=== PATIENT | female | born 1985 | race Caucasian/White ===

== ENCOUNTER 2016-07-25 17:57 | Emergency (ER) | payer OTHER ==
[~2016-07-25 17:57] MED LIST: AMIT25TA10 PO; BIRTH CONTROL PILL PO; CLAR10CA3 PO; CLON-412 PO; CLON0.5T PO; CLON1TAB PO; EMOQTAB PO; JOLETAB PO; LIDO1DIS2 TD; LYRI75CA OR; MULTTAB24 PO; OXYC1TAB15 PO; PERCOCET PO; PRENTAB7 PO; TRAM50TA2 OR; TRAM50TA2 PO; VENL150T PO; VENL75TA3 PO; VITA-130 PO; birth control pill PO
[2016-07-25] MEDS ORDERED: ONDANSETRON 4 MG ORAL DISINTEGRATING TAB (S0181) As Ordered ONE (19:57)
--- NOTE | 2016-07-25 20:08 | EDDOCDS ---
Physician Documentation [facility] Name: Elaine Mandujano Age: 30 yrs Sex: Female : 1985 Arrival Date: 07/25/2016 Time: 17:57 Bed Triage 2 Private MD: NO PRIMARY PHYSICIAN, . Disposition: 07/25/16 20:00 Discharged to Home/Self Care. Impression: Adverse effect of other narcotics - Tramadol Withdrawal, Anxiety disorder, unspecified. - Condition is Stable. - Discharge Instructions: Opioid Withdrawal, Nausea, Adult, [id number], Generalized Anxiety Disorder. - Prescriptions for ZOFRAN ODT 4 mg - dissolve 1 tablet by ORAL route 4 times per day As needed do not chew, do not swallow whole; 10 tablet. Vistaril 50 mg Oral capsule - take 1 capsule by ORAL route 4 times per day; 20 capsule. - Referral List Call for Appointment, Medication Reconciliation, Local Pharmacy Hours form. - [facility] ; When: 1 - 2 days; Reason: Recheck today's complaints, Continuance of care. Follow up: Emergency Department; Reason: Worsening of conditions. - Problem is new. - Symptoms have improved. Historical: - Allergies: Bactrim (chest pain); pregabalin (Swelling); - Home Meds: 1. buspirone 7.5 mg Oral tab 1 tab 2 times per day 2. tramadol 50 mg Oral tab 1 tab every 4 hours (Last dose: 07/24/2016 17:00) - PMHx: Scoliosis; previous misuse of Rx drugs; Pain clinic patient; Heart Murmur; GERD; Depression; Anxiety; - PSHx: Carpal Tunnel Repair- Right; debridement rt hand; - Social history: Smoking status: Patient uses tobacco products, light tobacco smoker. Patient uses street drugs, marijuana, Patient/guardian denies using alcohol, No barriers to communication noted, The patient speaks fluent Arabic, Speaks appropriately for age. - Family history: Not pertinent. - : The pt / caregiver states he / she is not on anticoagulants. Home medication list is obtained from the patient. - Exposure Risk Screening:: None identified. 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 11 in. (180.34 cm); Pain 8/10; 20:01 BP 155 / 85; Pulse 105; Resp 18; Temp 98.3(O); Pulse Ox 100% on R/A; Pain 5/10; rn1 17:58 Body Mass Index 16.04 (52.16 kg, 180.34 cm) dem1 MDM: 19:56 Ondansetron ODT Oral Disintegrating Tablet 4 mg PO once ordered. ef1 Administered Medications: 19:59 Drug: Ondansetron ODT 4 mg [ondansetron 4 mg disintegrating tablet (1 tabs)] Route: PO; ttb Signatures: Nichole Robin,RN RN ck1 Esperanza Cronin PA-C PAHussain ef1 Vivien Knox RN RN ttb Isac Bui RN RN jmb The chart was reviewed and I authenticate all verbal orders and agree with the evaluation and treatment provided.Corrections: (The following items were deleted from the chart) 20:02 18:20 Home Meds: tramadol 50 mg Oral tab 1 tab every 4 hours (Last Dose: 07/25/2016 debbie 17:00); ttb MTDD
--- NOTE | 2016-07-25 20:09 | EDDOCDS ---
Nurse's Notes [facility] Name: Elaine Mandujano Age: 30 yrs Sex: Female : 1985 Arrival Date: 07/25/2016 Time: 17:57 Bed Triage 2 Private MD: NO PRIMARY PHYSICIAN, . Diagnosis: Adverse effect of other narcotics-Tramadol Withdrawal;Anxiety disorder, unspecified Presentation: 07/25 18:16 Presenting complaint: Patient states: "I'm withdrawing from Tramadol". Last dose was ttb yesterday. C/o headache, hot and cold, shaky, blurred vision. No PCP. Been on it for 2 years for chronic hand pain. Pt was seeing Dr. Reed but pt dropped him .... Presenting complaint:. Adult Sepsis Screening: The patient does not have new or worsening altered mentation. Patient's respiratory rate is less than 22. Systolic blood pressure is greater than 100. Patient has a qSOFA score of 0- Negative Sepsis Screen. Suicide/Homicide risk assessment- the patient denies having any suicidal and/or homicidal ideations and does not present with any other emotional, behavioral or mental health complaints. Status: Patient is not a relocation services specialist or dependent. Transition of care: patient was not received from another setting of care. 18:16 Acuity: SUSY Level 5 ttb 18:16 Method Of Arrival: Walkin/Carried/Asstd ttb Triage Assessment: 18:20 General: Appears in no apparent distress, slender, Behavior is anxious, appropriate for ttb age, cooperative, pleasant. Pain: Location: right hand Pain currently is 8 out of 10 on a pain scale. HIV screening NA for this visit Offered previously. Neurological: Level of Consciousness is awake, alert. Neurological: Reports "shakiness". Cardiovascular: Chest pain is denied. Respiratory: No deficits noted. Airway is patent. GI: Reports nausea. Derm: Skin is normal. Injury Description: No known injury. 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 buspirone 7.5 mg Oral tab 1 tab 2 times per day 2. tramadol 50 mg Oral tab 1 tab every 4 hours (Last dose: 07/24/2016 17:00) - PMHx: Scoliosis; previous misuse of Rx drugs; Pain clinic patient; Heart Murmur; GERD; Depression; Anxiety; - PSHx: Carpal Tunnel Repair- Right; debridement rt hand; - Social history: Smoking status: Patient uses tobacco products, light tobacco smoker. Patient uses street drugs, marijuana, Patient/guardian denies using alcohol, No barriers to communication noted, The patient speaks fluent Vietnamese, Speaks appropriately for age. - Family history: Not pertinent. - : The pt / caregiver states he / she is not on anticoagulants. Home medication list is obtained from the patient. - Exposure Risk Screening:: None identified. Screenin:01 Screening information is obtained from the patient. Fall risk: No risks identified. ttb Assistance ADL's: requires no assistance with activities of daily living. Abuse/DV Screen: The patient / caregiver reports he/she is: not in a situation that causes fear, pain or injury. Nutritional screening: No deficits noted. Advance Directives: Currently, there is no health care proxy. home support is adequate. Assessment: 19:59 General: Appears in no apparent distress, comfortable, see triage assessment. Pt in no ttb distress. Meds given per orders. Ready for DC. . Respiratory: No deficits noted. Airway is patent. GI: Reports nausea. 20:07 General: Appears in no apparent distress, comfortable, Behavior is appropriate for age, ck1 cooperative. Pain: Denies pain. Neurological: Level of Consciousness is awake, alert, obeys commands, Oriented to person, place, time. Respiratory: Respiratory effort is unlabored, Respiratory pattern is regular, symmetrical. GI: No deficits noted. Derm: Skin is intact, is healthy with good turgor, Skin is pink, warm & dry. Vital Signs: 17:58 BP 155 / 89; Pulse 130; Resp 18; Temp 98.9(T); Pulse Ox 100% on R/A; Weight 52.16 kg; dem1 Height 5 ft. 11 in. (180.34 cm); Pain 8/10; 20:01 BP 155 / 85; Pulse 105; Resp 18; Temp 98.3(O); Pulse Ox 100% on R/A; Pain 5/10; rn1 17:58 Body Mass Index 16.04 (52.16 kg, 180.34 cm) dem1 Vitals: 17:58 Log In Time: July 25, 2016 at 17:55. dem1 ED Course: 17:58 Patient visited by Madelaine Leahy. dem1 17:58 NO PRIMARY PHYSICIAN, . is Private Physician. dem1 17:58 Patient moved to Waiting dem1 17:59 Patient moved to Pre RCE dem1 18:19 Triage Initiated ttb 19:43 Patient moved to Triage 2 ck1 19:44 Patient visited by Nichole Robin RN. ck1 19:47 Esperanza Cronin PA-C is PHCP. ef1 19:47 Jeffry Shafer DO is Attending Physician. ef1 19:48 Patient visited by Esperanza Cronin PA-C. ef1 20:00 Patient visited by Vivien Knox RN. ttb 20:00 [facility] is Referral Physician. ef1 20:01 Patient visited by Vivien Knox RN. ttb 20:01 The patient / caregiver is instructed regarding the plan of care and ED course. ttb Accompanied by Significant Other, Patient has correct armband on for positive identification. 20:01 No IV's were initiated during this patient's visit. No procedures done that require ttb assistance. Administered Medications: 19:59 Drug: Ondansetron ODT 4 mg [ondansetron 4 mg disintegrating tablet (1 tabs)] Route: PO; ttb Order Results: There are currently no results for this order. Outcome: 20:00 Discharge ordered by Provider. ef1 20:01 No special radiology studies were completed. Property :Personal belongings accompany Pt.ttb 20:07 Discharge Assessment: Patient awake, alert and oriented x 3. No cognitive and/or ck1 functional deficits noted. Patient verbalized understanding of disposition instructions. patient administered narcotics - no. The following High Risk Discharge criteria are identified: None. Discharged to home ambulatory. Condition: stable. Discharge instructions given to patient, Instructed on discharge instructions, follow up and referral plans. medication usage, Demonstrated understanding of instructions, medications, Pt was receptive of discharge instructions/ teaching. Prescriptions given X 2, Work note provided to patient. 20:08 Patient left the ED. ck1 Signatures: Nichole Robin RN RN ck1 Esperanza Cronin PA-C PA-C ef1 Armond, DemVivien Fletcher RN RN ttb Isac Bui RN RN jmViral Ramos rn1 Corrections: (The following items were deleted from the chart) 20:02 18:20 Home Meds: tramadol 50 mg Oral tab 1 tab every 4 hours (Last Dose: 07/25/2016 debbie 17:00); andi MTDD
--- NOTE | 2016-07-27 21:08 | EDDOCDS ---
Physician Documentation [facility] Name: Elaine Mandujano Age: 30 yrs Sex: Female : 1985 Arrival Date: 07/25/2016 Time: 17:57 Bed Triage 2 Private MD: NO PRIMARY PHYSICIAN, . Disposition: 07/25/16 20:00 Discharged to Home/Self Care. Impression: Adverse effect of other narcotics - Tramadol Withdrawal, Anxiety disorder, unspecified. - Condition is Stable. - Discharge Instructions: Opioid Withdrawal, Nausea, Adult, [id number], Generalized Anxiety Disorder. - Prescriptions for ZOFRAN ODT 4 mg - dissolve 1 tablet by ORAL route 4 times per day As needed do not chew, do not swallow whole; 10 tablet. Vistaril 50 mg Oral capsule - take 1 capsule by ORAL route 4 times per day; 20 capsule. - Referral List Call for Appointment, Medication Reconciliation, Local Pharmacy Hours form. - [facility] ; When: 1 - 2 days; Reason: Recheck today's complaints, Continuance of care. Follow up: Emergency Department; Reason: Worsening of conditions. - Problem is new. - Symptoms have improved. Historical: - Allergies: Bactrim (chest pain); pregabalin (Swelling); - Home Meds: 1. buspirone 7.5 mg Oral tab 1 tab 2 times per day 2. tramadol 50 mg Oral tab 1 tab every 4 hours (Last dose: 07/24/2016 17:00) - PMHx: Scoliosis; previous misuse of Rx drugs; Pain clinic patient; Heart Murmur; GERD; Depression; Anxiety; - PSHx: Carpal Tunnel Repair- Right; debridement rt hand; - Social history: Smoking status: Patient uses tobacco products, light tobacco smoker. Patient uses street drugs, marijuana, Patient/guardian denies using alcohol, No barriers to communication noted, The patient speaks fluent Mongolian, Speaks appropriately for age. - Family history: Not pertinent. - : The pt / caregiver states he / she is not on anticoagulants. Home medication list is obtained from the patient. - Exposure Risk Screening:: None identified. 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 11 in. (180.34 cm); Pain 8/10; 20:01 BP 155 / 85; Pulse 105; Resp 18; Temp 98.3(O); Pulse Ox 100% on R/A; Pain 5/10; rn1 17:58 Body Mass Index 16.04 (52.16 kg, 180.34 cm) dem1 MDM: 19:56 Ondansetron ODT Oral Disintegrating Tablet 4 mg PO once ordered. ef1 20: [facility] Payment Agreement was scanned into [employer] and attached to record. gjb : Financial registration complete. gjb 07/26 07: T-Sheet-- Draft Copy was scanned into [employer] and attached to record. gb Administered Medications: 07/25 19:59 Drug: Ondansetron ODT 4 mg [ondansetron 4 mg disintegrating tablet (1 tabs)] Route: PO; ttb Signatures: Cynthia Jimenez, Reg Reg gb Nichole Robin,RN RN ck1 Esperanza Cronin PAaDnaC PADanaC ef1 Vivien Knox RN RN Isac EliRN RN Alana Saeed The chart was reviewed and I authenticate all verbal orders and agree with the evaluation and treatment provided.Corrections: (The following items were deleted from the chart) 20:02 18:20 Home Meds: tramadol 50 mg Oral tab 1 tab every 4 hours (Last Dose: 07/25/2016 debbie 17:00); ttb Attachments: : [facility] Payment Agreement [facility] 07/26 07:18 T-Sheet-- Draft Copy gb Chart Complete MTDD
--- NOTE | 2016-07-27 21:08 | EDDOCDS ---
Physician Documentation [facility] Name: Elaine Mandujano Age: 30 yrs Sex: Female : 1985 Arrival Date: 07/25/2016 Time: 17:57 Bed Triage 2 Private MD: NO PRIMARY PHYSICIAN, . Disposition: 07/25/16 20:00 Discharged to Home/Self Care. Impression: Adverse effect of other narcotics - Tramadol Withdrawal, Anxiety disorder, unspecified. - Condition is Stable. - Discharge Instructions: Opioid Withdrawal, Nausea, Adult, [id number], Generalized Anxiety Disorder. - Prescriptions for ZOFRAN ODT 4 mg - dissolve 1 tablet by ORAL route 4 times per day As needed do not chew, do not swallow whole; 10 tablet. Vistaril 50 mg Oral capsule - take 1 capsule by ORAL route 4 times per day; 20 capsule. - Referral List Call for Appointment, Medication Reconciliation, Local Pharmacy Hours form. - [facility] ; When: 1 - 2 days; Reason: Recheck today's complaints, Continuance of care. Follow up: Emergency Department; Reason: Worsening of conditions. - Problem is new. - Symptoms have improved. Historical: - Allergies: Bactrim (chest pain); pregabalin (Swelling); - Home Meds: 1. buspirone 7.5 mg Oral tab 1 tab 2 times per day 2. tramadol 50 mg Oral tab 1 tab every 4 hours (Last dose: 07/24/2016 17:00) - PMHx: Scoliosis; previous misuse of Rx drugs; Pain clinic patient; Heart Murmur; GERD; Depression; Anxiety; - PSHx: Carpal Tunnel Repair- Right; debridement rt hand; - Social history: Smoking status: Patient uses tobacco products, light tobacco smoker. Patient uses street drugs, marijuana, Patient/guardian denies using alcohol, No barriers to communication noted, The patient speaks fluent Occitan, Speaks appropriately for age. - Family history: Not pertinent. - : The pt / caregiver states he / she is not on anticoagulants. Home medication list is obtained from the patient. - Exposure Risk Screening:: None identified. 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 11 in. (180.34 cm); Pain 8/10; 20:01 BP 155 / 85; Pulse 105; Resp 18; Temp 98.3(O); Pulse Ox 100% on R/A; Pain 5/10; rn1 17:58 Body Mass Index 16.04 (52.16 kg, 180.34 cm) dem1 MDM: 19:56 Ondansetron ODT Oral Disintegrating Tablet 4 mg PO once ordered. ef1 20: [facility] Payment Agreement was scanned into [employer] and attached to record. gjb : Financial registration complete. gjb 07/26 07: T-Sheet-- Draft Copy was scanned into [employer] and attached to record. gb Administered Medications: 07/25 19:59 Drug: Ondansetron ODT 4 mg [ondansetron 4 mg disintegrating tablet (1 tabs)] Route: PO; ttb Signatures: Cynthia Jimenez, Reg Reg gb Nichole Robin,RN RN ck1 Esperanza Cronin PADanaC PADanaC ef1 Vivien Knox RN RN Isac EliRN RN Alana Saeed The chart was reviewed and I authenticate all verbal orders and agree with the evaluation and treatment provided.Corrections: (The following items were deleted from the chart) 20:02 18:20 Home Meds: tramadol 50 mg Oral tab 1 tab every 4 hours (Last Dose: 07/25/2016 debbie 17:00); ttb Attachments: : [facility] Payment Agreement [facility] 07/26 07:18 T-Sheet-- Draft Copy gb Chart Complete MTDD
--- NOTE | 2016-07-27 21:09 | EDDOCDS ---
Nurse's Notes [facility] Name: Elaine Mandujano Age: 30 yrs Sex: Female : 1985 Arrival Date: 07/25/2016 Time: 17:57 Bed Triage 2 Private MD: NO PRIMARY PHYSICIAN, . Diagnosis: Adverse effect of other narcotics-Tramadol Withdrawal;Anxiety disorder, unspecified Presentation: 07/25 18:16 Presenting complaint: Patient states: "I'm withdrawing from Tramadol". Last dose was ttb yesterday. C/o headache, hot and cold, shaky, blurred vision. No PCP. Been on it for 2 years for chronic hand pain. Pt was seeing Dr. Reed but pt dropped him .... Presenting complaint:. Adult Sepsis Screening: The patient does not have new or worsening altered mentation. Patient's respiratory rate is less than 22. Systolic blood pressure is greater than 100. Patient has a qSOFA score of 0- Negative Sepsis Screen. Suicide/Homicide risk assessment- the patient denies having any suicidal and/or homicidal ideations and does not present with any other emotional, behavioral or mental health complaints. Status: Patient is not a services program manager or dependent. Transition of care: patient was not received from another setting of care. 18:16 Acuity: SUSY Level 5 ttb 18:16 Method Of Arrival: Walkin/Carried/Asstd ttb Triage Assessment: 18:20 General: Appears in no apparent distress, slender, Behavior is anxious, appropriate for ttb age, cooperative, pleasant. Pain: Location: right hand Pain currently is 8 out of 10 on a pain scale. HIV screening NA for this visit Offered previously. Neurological: Level of Consciousness is awake, alert. Neurological: Reports "shakiness". Cardiovascular: Chest pain is denied. Respiratory: No deficits noted. Airway is patent. GI: Reports nausea. Derm: Skin is normal. Injury Description: No known injury. 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 buspirone 7.5 mg Oral tab 1 tab 2 times per day 2. tramadol 50 mg Oral tab 1 tab every 4 hours (Last dose: 07/24/2016 17:00) - PMHx: Scoliosis; previous misuse of Rx drugs; Pain clinic patient; Heart Murmur; GERD; Depression; Anxiety; - PSHx: Carpal Tunnel Repair- Right; debridement rt hand; - Social history: Smoking status: Patient uses tobacco products, light tobacco smoker. Patient uses street drugs, marijuana, Patient/guardian denies using alcohol, No barriers to communication noted, The patient speaks fluent Prydeinig, Speaks appropriately for age. - Family history: Not pertinent. - : The pt / caregiver states he / she is not on anticoagulants. Home medication list is obtained from the patient. - Exposure Risk Screening:: None identified. Screenin:01 Screening information is obtained from the patient. Fall risk: No risks identified. ttb Assistance ADL's: requires no assistance with activities of daily living. Abuse/DV Screen: The patient / caregiver reports he/she is: not in a situation that causes fear, pain or injury. Nutritional screening: No deficits noted. Advance Directives: Currently, there is no health care proxy. home support is adequate. Assessment: 19:59 General: Appears in no apparent distress, comfortable, see triage assessment. Pt in no ttb distress. Meds given per orders. Ready for DC. . Respiratory: No deficits noted. Airway is patent. GI: Reports nausea. 20:07 General: Appears in no apparent distress, comfortable, Behavior is appropriate for age, ck1 cooperative. Pain: Denies pain. Neurological: Level of Consciousness is awake, alert, obeys commands, Oriented to person, place, time. Respiratory: Respiratory effort is unlabored, Respiratory pattern is regular, symmetrical. GI: No deficits noted. Derm: Skin is intact, is healthy with good turgor, Skin is pink, warm & dry. Vital Signs: 17:58 BP 155 / 89; Pulse 130; Resp 18; Temp 98.9(T); Pulse Ox 100% on R/A; Weight 52.16 kg; dem1 Height 5 ft. 11 in. (180.34 cm); Pain 8/10; 20:01 BP 155 / 85; Pulse 105; Resp 18; Temp 98.3(O); Pulse Ox 100% on R/A; Pain 5/10; rn1 17:58 Body Mass Index 16.04 (52.16 kg, 180.34 cm) dem1 Vitals: 17:58 Log In Time: July 25, 2016 at 17:55. dem1 ED Course: 17:58 Patient visited by Madelaine Leahy. dem1 17:58 NO PRIMARY PHYSICIAN, . is Private Physician. dem1 17:58 Patient moved to Waiting dem1 17:59 Patient moved to Pre RCE dem1 18:19 Triage Initiated ttb 19:43 Patient moved to Triage 2 ck1 19:44 Patient visited by Nichole Robin RN. ck1 19:47 Esperanza Cronin PA-C is PHCP. ef1 19:47 Jeffry Shafer DO is Attending Physician. ef1 19:48 Patient visited by Esperanza Cronin PA-C. ef1 20:00 Patient visited by Vivien Knox RN. ttb 20:00 [facility] is Referral Physician. ef1 20:01 Patient visited by Vivien Knox RN. ttb 20:01 The patient / caregiver is instructed regarding the plan of care and ED course. ttb Accompanied by Significant Other, Patient has correct armband on for positive identification. 20:01 No IV's were initiated during this patient's visit. No procedures done that require ttb assistance. 20:09 [facility] Payment Agreement was scanned into [employer] and attached to record. b 07/26 07:18 T-Sheet-- Draft Copy was scanned into [employer] and attached to record. gb Administered Medications: 07/25 19:59 Drug: Ondansetron ODT 4 mg [ondansetron 4 mg disintegrating tablet (1 tabs)] Route: PO; ttb Order Results: There are currently no results for this order. Outcome: 20:00 Discharge ordered by Provider. ef1 20:01 No special radiology studies were completed. Property :Personal belongings accompany Pt.ttb 20:07 Discharge Assessment: Patient awake, alert and oriented x 3. No cognitive and/or ck1 functional deficits noted. Patient verbalized understanding of disposition instructions. patient administered narcotics - no. The following High Risk Discharge criteria are identified: None. Discharged to home ambulatory. Condition: stable. Discharge instructions given to patient, Instructed on discharge instructions, follow up and referral plans. medication usage, Demonstrated understanding of instructions, medications, Pt was receptive of discharge instructions/ teaching. Prescriptions given X 2, Work note provided to patient. 20:08 Patient left the ED. ck1 Signatures: Cynthia Jimenez, Reg Reg gb Nichole Robin,RN RN ck1 Esperanza Cronin PA-C PA-C ef1 Madelaine Leahy1 Vivien Knox RN RN reidb Isac Bui RN RN jmb Viral Yanez rn1 Alana Velez Corrections: (The following items were deleted from the chart) 20:02 18:20 Home Meds: tramadol 50 mg Oral tab 1 tab every 4 hours (Last Dose: 07/25/2016 debbie 17:00); ttb Chart Complete MTDD
== END 2016-07-25 20:08 | disposition home or self-care (01) ==
LOC: M ED 17:57
DX: F41.1 Generalized anxiety disorder (principal); F11.23 Opioid dependence with withdrawal; R11.0 Nausea; M41.9 Scoliosis, unspecified; R01.1 Cardiac murmur, unspecified; K21.9 Gastro-esophageal reflux disease without esophagitis; F32.9 Major depressive disorder, single episode, unspecified; Z79.899 Other long term (current) drug therapy; Z88.1 Allergy status to other antibiotic agents; Z88.8 Allergy status to other drugs, medicaments and biological substances

== ENCOUNTER → 2016-08-02 | Outpatient (REF) | payer OTHER ==
[2016-08-02 16:17] LABS: FREE T4 1.06 NG/DL (0.76-1.46)
== END ==
LOC: M SFHCPLAZ 11:20
PROVIDERS: ATTEND Physician Assistant Medical
DX: F41.9 Anxiety disorder, unspecified (principal); M62.81 Muscle weakness (generalized)

== ENCOUNTER → 2017-01-03 | Outpatient (REF) | payer OTHER | LOC: M OUTALCOH 16:07 | PROVIDERS: ATTEND Psychiatry & Neurology Psychiatry | DX: F12.10 Cannabis abuse, uncomplicated (principal) ==

== ENCOUNTER → 2022-10-14 | Outpatient (REF) | payer OTHER ==
[~2022-10-14] MED LIST changes: -CLON0.5T PO; +CLON0.5T2 PO; -CLON1TAB PO; +CLON1TAB8 PO; -OXYC1TAB15 PO; +OXYC1TAB23 PO; +OXYC7.5T3 PO; -PERCOCET PO; +VENL-65 PO; -VENL150T PO; +VENL150T14 PO; -VENL75TA3 PO; -VITA-130 PO; +VITA-243 PO
[2022-10-14 13:26] LABS: BASO % 0.5 % (0.0-1.0); HEMATOCRIT 39.9 % (36.0-47.0); HEMOGLOBIN 12.7 g/dl (12.0-15.5); LYMPH # 1.9 10^3/uL (1.5-5.0); LYMPH % 32.9 % (24.0-44.0); MEAN CORPUSCULAR HEMOGLOBIN 27.3 pg (27.0-33.0); MEAN CORPUSCULAR HGB CONC 31.8 g/dl (32.0-36.5); MEAN CORPUSCULAR VOLUME 85.6 fl (80.0-96.0); MONO # 0.4 10^3/uL (0.0-0.8); MONO % 7.1 % (2.0-8.0); NEUTROPHILS # 3.5 10^3/uL (1.5-8.5); NEUTROPHILS % 59.2 % (36.0-66.0); PLATELET COUNT, AUTOMATED 179 10^3/uL (150-450); RED BLOOD COUNT 4.66 10^6/uL (4.00-5.40); WHITE BLOOD COUNT 5.9 10^3/uL (4.0-10.0)
[2022-10-14 13:36] LABS: FOLATE 18.1 NG/ML (>5.4); THYROID STIMULATING HORMONE 0.977 uIU/ML (0.55-4.78); TOTAL 25(OH) VITAMIN D 29.8 NG/ML (20.0-100.0); VITAMIN B12 LEVEL 630 PG/ML (211-911)
[2022-10-14 13:44] LABS: ALKALINE PHOSPHATASE 81 U/L (46-116); ALT/SGPT 10 U/L (7.0-40); AST/SGOT 10 U/L (<34); BILIRUBIN,TOTAL 0.2 MG/DL (0.3-1.2); BLOOD UREA NITROGEN 12 MG/DL (9-23); CALCIUM LEVEL 8.6 MG/DL (8.5-10.1); CARBON DIOXIDE LEVEL 25 MMOL/L (20-31); CHLORIDE LEVEL 108 MMOL/L (98-107); CHOLESTEROL LEVEL 157 MG/DL (<200); CHOLESTEROL RISK RATIO 2.59 (<5); CREATININE FOR GFR 0.71 MG/DL (0.55-1.30); GLOMERULAR FILTRATION RATE > 60.0 (>60); GLUCOSE, FASTING 108 MG/DL (60-100); HDL CHOLESTEROL 60.4 MG/DL (>40); MAGNESIUM LEVEL 1.6 MG/DL (1.8-2.4); NON-HDL-C 96.6 MG/DL; SODIUM LEVEL 140 MMOL/L (136-145); TOTAL PROTEIN 6.9 G/DL (5.7-8.2); TRIGLYCERIDES LEVEL 113 MG/DL (<150)
[2022-10-14 14:27] LABS: HEMOGLOBIN A1c 4.5 % (4.0-6.0)
== END ==
LOC: M LAB REF 12:26
PROVIDERS: ATTEND Nurse Practitioner Family
DX: E55.9 Vitamin D deficiency, unspecified (principal); R53.83 Other fatigue; Z11.9 Encounter for screening for infectious and parasitic diseases, unspecified; R20.2 Paresthesia of skin

== ENCOUNTER → 2023-03-31 | Outpatient (REF) | payer OTHER ==
[2023-03-31 19:03] LABS: BLOOD UREA NITROGEN 7 MG/DL (9-23); CALCIUM LEVEL 8.3 MG/DL (8.5-10.1); CARBON DIOXIDE LEVEL 25 MMOL/L (20-31); CHLORIDE LEVEL 107 MMOL/L (98-107); CREATININE FOR GFR 0.65 MG/DL (0.55-1.30); GLOMERULAR FILTRATION RATE > 60.0 (>60); GLUCOSE, FASTING 92 MG/DL (60-100); POTASSIUM SERUM 4.4 MMOL/L (3.5-5.1); SODIUM LEVEL 140 MMOL/L (136-145)
[2023-03-31 19:04] LABS: IRON (FE) 36 UG/DL (50-170); PERCENT SATURATION 11.2 % (13.2-45.0); TOTAL IRON BINDING CAPACITY 321 UG/DL (250-425)
[2023-03-31 19:05] LABS: TOTAL 25(OH) VITAMIN D 28.1 NG/ML (20.0-100.0)
[2023-04-02 15:45] LABS: MAGNESIUM LEVEL 1.6 MG/DL (1.8-2.4)
== END ==
LOC: M LAB REF 17:43
PROVIDERS: ATTEND Nurse Practitioner Family
DX: E83.42 Hypomagnesemia (principal); R20.2 Paresthesia of skin

== ENCOUNTER → 2023-04-04 | Outpatient (CLI) | payer OTHER | LOC: M RAD 09:59 | PROVIDERS: ATTEND Nurse Practitioner Family | DX: Z01.818 Encounter for other preprocedural examination (principal) ==

== ENCOUNTER → 2023-08-21 | Outpatient (REF) | payer OTHER ==
[2023-08-21 14:11] LABS: BLOOD UREA NITROGEN 10 MG/DL (9-23); CALCIUM LEVEL 8.7 MG/DL (8.5-10.1); CARBON DIOXIDE LEVEL 25 MMOL/L (20-31); CHLORIDE LEVEL 111 MMOL/L (98-107); GLOMERULAR FILTRATION RATE > 60.0 (>60); GLUCOSE, FASTING 98 MG/DL (60-100); MAGNESIUM LEVEL 1.7 MG/DL (1.8-2.4); SODIUM LEVEL 142 MMOL/L (136-145)
[2023-08-21 14:12] LABS: THYROID STIMULATING HORMONE 2.725 uIU/ML (0.55-4.78)
== END ==
LOC: M LAB REF 13:24
PROVIDERS: ATTEND Nurse Practitioner Family
DX: E83.42 Hypomagnesemia (principal); R00.2 Palpitations

== ENCOUNTER → 2023-09-01 | Outpatient (CLI) | payer OTHER | LOC: M EKG 17:26 | PROVIDERS: ATTEND Nurse Practitioner Family | DX: R00.2 Palpitations (principal) ==